=== PATIENT | male | born 1985 | race Caucasian/White ===

== ENCOUNTER 2021-04-23 23:59 | Emergency (ER) | payer BC ==
[2021-04-24] MEDS ORDERED: Lactated Ringers 1,000 ML IV ONE (02:06)
[2021-04-24] MEDS ORDERED: Zofran 4 MG/2 ML VIAL ONE (02:06)
[2021-04-24 07:11] LABS: Hematocrit 44.9 % (42-50); Hemoglobin 15.1 gm/dl (12.5-18.0); Mean Cell Volume 85.2 fl (78-100); Mean Corpuscular Hemoglobin 28.7 pg (26-32); Mean Corpuscular Hgb Concent. 33.6 g/dl (32-36); Red Blood Count 5.27 M/mm3 (4.1-5.6); White Blood Count 5.5 K/mm3 (4.0-10.5)
[2021-04-24 07:12] LABS: BLOOD UREA NITROGEN 10 mg/dL (9-20); Creatinine 1 0.94 mg/dL (0.66-1.25); EST GLOMERULAR FILTRATION RATE > 60.0 ML/MIN; Glucose 109 mg/dL (74-106); Mean Platelet Volume 9.5 fl (7.5-11.0); Platelet Count 181 K/mm3 (150-450); Red Cell Distribution Width 13.5 % (11.5-14.0); SODIUM 135 mmol/L (137-145)
[2021-04-24 07:13] LABS: ALBUMIN 4.1 g/dL (3.5-5.0); ALKALINE PHOSPHATASE 71 U/L (38-126); CHLORIDE 102 mmol/L (98-107); Calcium 8.4 mg/dL (8.4-10.2); Carbon Dioxide 21 mmol/L (22-30); SGOT/AST 64 U/L (17-59); SGPT/ALT 58 U/L (0-50); Total Protein 6.9 g/dL (6.3-8.2)
== END 2021-04-24 04:27 | disposition home or self-care (01) ==
LOC: ED 23:59
DX: R11.0 Nausea (principal); U07.1 COVID-19
CPT/HCPCS: 36415; 80053; 85027; 96374; 99283; J2405